=== PATIENT | female | born 1955 | race Hispanic/Latino ===

== ENCOUNTER 2016-05-02 05:55 | Inpatient (IN) | payer BC, OTHER ==
[2016-04-26 15:04] LABS: Eosinophils % (Auto) 1.7 % (0.0-4.3); Hemoglobin 14.5 gm/dl (10.1-14.3); Mean Corpuscular HGB Conc 34 % (30-34); Mean Corpuscular Hemoglobin 31 pg (28-32); Mean Corpuscular Volume 92 fl (79-97); Platelet Count 275 K/mm3 (140-440); Red Blood Count 4.67 M/mm3 (3.65-5.03); Red Cell Distribution Width 13.3 % (13.2-15.2); White Blood Count 7.4 K/mm3 (4.5-11.0)
--- NOTE | 2016-04-26 15:09 | Anesthesia Consultation ---
Anesthesia Consult and Med Hx Date of service: 04/26/16 - Airway Anesthetic Teeth Evaluation: Good ROM Head & Neck: Adequate Mental/Hyoid Distance: Adequate Mallampati Class: Class II Intubation Access Assessment: Probably Good - Pulmonary Exam CTA: Yes - Cardiac Exam Cardiac Exam: RRR - Pre-Operative Health Status ASA Pre-Surgery Classification: ASA3 Proposed Anesthetic Plan: General Nerve Block: Femoral - Pre-Anesthesia Comment Pre-Anesthesia Comments: Pt. is very claustraphobic. Do not put mask on face until asleep. - Pulmonary Hx Smoking: No Hx Sleep Apnea: No (GEOVANI PRE SCREEN HIGH RISK) - Cardiovascular System Hx Hypertension: Yes (NO MEDS / ? DUE TO ANXIETY) - Central Nervous System Hx Seizures: No CVA: No Hx Psychiatric Problems: Yes (anxiety) - Endocrine Hx Renal Disease: No Hx Cirrhosis: No Hx Non-Insulin Dependent Diabetes: No - Hematic Hx Anemia: No - Other Systems Hx Cancer: No Hx Obesity: Yes - Additional Comments Anesthesia Medical History Comments: No problems with previous anesthesias. On around the clock pain meds for knee pain.
[2016-04-26 15:14] LABS: INR 1.03 (0.87-1.13)
[2016-04-26 15:15] LABS: Partial Thromboplastin Time 29.7 Sec. (24.2-36.6)
[2016-04-26 15:23] LABS: Alanine Aminotransferase 25 units/L (7-56); Alkaline Phosphatase 72 units/L (35-129); Anion Gap 18 mmol/L; Blood Urea Nitrogen 12 mg/dL (7-17); Calcium 8.5 mg/dL (8.4-10.2); Carbon Dioxide 24 mmol/L (22-30); Chloride 99.1 mmol/L (98-107); Glucose 83 mg/dL (65-100); Sodium 137 mmol/L (137-145); Total Protein 7.1 g/dL (6.3-8.2)
[2016-04-26 19:51] LABS: Albumin 3.9 g/dL (3.9-5); Albumin/Globulin Ratio 1.2 %
[~2016-05-02 05:55] MED LIST: NACL 0.9% 1000 ML 1,000 ML IV SCH; NEURONTIN PO NR; PEPCID PO NR; VANCOMYCIN/NS 1 GM/250 ML 250 ML IV NR; VERSED IV NR
[2016-05-02] MEDS ORDERED: VERSED IV NR (06:00)
[2016-05-02] MEDS ORDERED: NEURONTIN PO NR (06:00)
[2016-05-02] MEDS ORDERED: PEPCID PO NR (06:00)
[2016-05-02] MEDS ORDERED: NACL BACTERIOSTATIC INFILTRATI ONE (06:35)
[2016-05-02] MEDS ORDERED: DECADRON ONE (06:57)
[2016-05-02] MEDS ORDERED: MARCAINE-EPI 0.5%-1:200,000 INFILTRATI ONE ×2 (06:57→08:27)
[2016-05-02] MEDS ORDERED: MORPHINE ONE (06:58)
[2016-05-02] MEDS ORDERED: XYLOCAINE MPF 2% ONE (07:21)
[2016-05-02] MEDS ORDERED: VERSED ONE (07:21)
[2016-05-02] MEDS ORDERED: DIPRIVAN 10 MG/ML 1,000 MG/100 ML BOTTLE IV ONE (07:25)
--- NOTE | 2016-05-02 08:11 | Admit Criteria Form ---
Admission Criteria Documentation: AMBULATORY SURGERY EXCEPTION CRITERIA Ambulatory Surgery Exception Criteria ( Place 'X' for any and all applicable criteria): Surgery or procedure performed on ambulatory basis may require inpatient stay for[A] ANY ONE of the following(1)(2)(3)(4)(5)(6)(7)(8)(9): [X] I. A preoperative situation, condition, or finding that warrants inpatient stay as indicated by ANY ONE of the following: [] a) Inpatient care needed because of severity of a disease or condition rather than the surgery (eg, severe cardiac or respiratory disease, severe infection) (15) (16 ) (17) (18) [] b) Emergent procedure (eg, angioplasty for acute ischemia)(19) [] c) Complex surgical approach or situation as indicated by ANY ONE of the following(3): [] i) Open approach needed instead of usual endoscopic, transcatheter, or other less invasive procedure [] ii) Difficult approach because of previous operation [] iii) Airway monitoring required after open neck procedures(20)(21) [] iv) Large mass requiring unusually extensive dissection [] v) Additional complicating feature requiring inpatient care (eg, drain management)(22(23): [X] d) Major surgery in a pt with high anesthetic risk as indicated by ANY ONE of the following (2)(3)(5)(7)(8): [X] i) ASA risk class III or higher (severe systemic disease impairing function) [D] [] ii) Advanced age (eg, older than 85 years)(14)(24) [] iii) Symptomatic heart failure(25) [] iv) Symptomatic asthma or COPD(8)(21) [] v) Morbid obesity with hemodynamic or respiratory problems(20)( 21)(26)(27) [] vi) Obstructive sleep apnea(20)(21) [] vii) Former premature infants who are younger than 60 weeks [] viii) High risk for severe postoperative abnormalities (eg, severe postoperative hypocalcemia after parathyroidectomy for severe hyperparathyroidism)(27)( 28) [] ix) Unstable angina(25) [] e) Drug-related risk requiring inpatient stay as indicated by ANY ONE of the following(5)(10)(14)(32)(33) [] i) Procedure requires discontinuing drugs or other therapy (eg , antiarrhythmic medication, antiseizure medication), which necessitates inpatient observation or treatment.(18)(31) [] ii) Major surgery and high risk drug use as indicated by ANY ONE of the following: [] 1) Active abuse of cocaine or similar drug [] 2) Monoamine oxidase inhibitor use [] 3) Other drug identified as posing risk [] f) Inadequate outpatient care situation as indicated by ANY ONE of the following(5)(10)(14)(32)(33) [] i) Patient lives remote from medical facility and procedure has urgent complication potential, and temporary nearby residence cannot be arranged [] ii) Patient will have postprocedure incapacitation and inadequate assistance at home, or alternative level of care cannot be arranged. [] iii) Patient will have long general anesthesia or procedure side effect resolution time, and competent person to stay with patient on first postoperative night at home or alternative level of care cannot be arranged. []iv) Other inadequate outpatient situation that cannot be handled by other means [] II. A perioperative event, condition, or finding that warrants inpatient stay as indicated by ANY ONE of the following (1)(2)(3): [] a) Inadequate physiologic recovery: cardiovascular, respiratory, or hemodynamic status not normal or near preoperative baseline(18) [] b) Hemodynamic instability [] c) Patient not alert with near normal or baseline mental status [] d) Temperature not normal or as expected and not appropriate for outpatient treatment of condition [] e) Ambulatory or appropriate activity level status not yet achieved post procedure [E](34)(35)(36) [] f) Operative site not appropriate (eg, unexpected or excessive drainage or bleeding) [] g) Postoperative effects not resolved or adequately managed (eg, significant pain or vomiting not appropriate for outpatient or next level of care)(10)(12) [] h) Complicating features requiring inpatient care as indicated by ANY ONE of the following(37): [] i) Severe complications of procedure (eg, bowel injury, airway compromise, vascular injury,severe hemorrhage) [] ii) Extensive (eg, dissection far beyond usual scope of procedure ) or prolonged (eg, 120 minutes beyond usual) surgery needed requiring inpatient postoperative care [] iii) Conversion to an open or complex procedure that requires inpatient care (eg, open vs laparoscopic cholecystectomy, abdominal vs vaginal hysterectomy)(38) [] iv) Comorbid condition or test result identified during or post procedure that requires inpatient care (7) [] v) Malignant hyperthermia(30) [] vi) Other complicating feature requiring inpatient care(22)(23) Inpatient stay may be needed until ALL of the following are present (1)(2)(3)(4) (5)(6)(10)(14)(33)(40): []a) Physiologic recovery: cardiovascular, respiratory, and hemodynamic status normal or near preoperative baseline []b) Hemodynamic stability []c) Patient alert, with near normal or baseline mental status []d) Temperature appropriate: patient afebrile or temperature appropriate for outpt treatment of condition []e) Activity level appropriate: ambulatory or appropriate activity level post procedure []f) Operative site appropriate as indicated by ALL of the following: []i) Site dry or with expected drainage []ii) Any blood noted is as expected for procedure. []g) Postoperative effects resolved or managed as indicated by ALL of the following: []i) Pain management appropriate for outpatient (or next level of) care(10) []ii) Minimal nausea and vomiting: if present, successfully treated with oral medication(12) []iii) Headache, dizziness, or drowsiness (if present) are mild. []h) Voiding status acceptable as indicated by ANY ONE of the following: []i) Voiding spontaneously []ii) No voiding but instructions given for follow-up in 6 to 8 hours []iii) Urinary catheter in place, and instructions given for follow-up []i) Complicating features requiring inpatient care manageable at a lower level of care(37) []j) Comorbid conditions manageable at a lower level of care(37) The original [employer] content created by [employer] has been revised. The portions of the content which have been revised are identified through the use of italic text or in bold, and [employer] [facility] [employer] has neither reviewed nor approved the modified material. All other unmodified content is copyright [employer]. Please see references footnoted in the original [employer] edition 2016 Admission Criteria Met: Yes
[2016-05-02] MEDS ORDERED: NEOSPORIN GU IR ONE (08:24)
[2016-05-02] MEDS ORDERED: DEPO-MEDROL INTRA-ARTI ONE (08:25)
[2016-05-02] MEDS ORDERED: MORPHINE IM ONE (08:25)
[2016-05-02] MEDS ORDERED: TORADOL IV ONE (08:26)
[2016-05-02] MEDS ORDERED: NACL 0.9% IR ONE ×3 (08:27→08:30)
[2016-05-02] MEDS ORDERED: TRANEXAMIC ACID IV ONE (08:28)
[2016-05-02] MEDS ORDERED: MARCAINE 0.5% INFILTRATI ONE (09:07)
[2016-05-02] MEDS ORDERED: NACL 0.9% 100 ML ONE (09:15)
[2016-05-02] MEDS ORDERED: NEO SYNEPHRINE ONE (09:15)
[2016-05-02] MEDS ORDERED: AMBIEN PO PRN (09:36)
[2016-05-02] MEDS ORDERED: MORPHINE IV PRN ×2 (09:36)
[2016-05-02] MEDS ORDERED: ZOFRAN IV PRN (09:36)
[2016-05-02] MEDS ORDERED: TYLENOL PO PRN (09:36)
[2016-05-02] MEDS ORDERED: ePHEDrine SULFATE ONE (09:36)
[2016-05-02] MEDS ORDERED: PHENERGAN PR PRN (09:36)
[2016-05-02] MEDS ORDERED: DULCOLAX PR PRN (09:36)
[2016-05-02] MEDS ORDERED: TORADOL IV PRN (09:36)
[2016-05-02] MEDS ORDERED: MILK OF MAGNESIA PO PRN (09:36)
[2016-05-02] MEDS ORDERED: NARCAN 0.4 MG/1 ML IV PRN (09:36)
[2016-05-02] MEDS ORDERED: SODIUM CHLORIDE FLUSH SYRINGE 10 ML IV PRN (09:36)
--- NOTE | 2016-05-02 09:44 | Procedure Note ---
Date of procedure: 05/02/16 Pre-op diagnosis: fail4d right knee replacement Post-op diagnosis: same Procedure: redo TKR Anesthesia: regional Surgeon: PEGGY FRYE [employer] Supervisor: NIMCO SAMANIEGO Estimated blood loss: minimal Pathology: none Specimen disposition: discarded Disposition: floor
[2016-05-02] MEDS ORDERED: NACL ONE (13:00)
--- NOTE | 2016-05-02 15:21 | Anesthesia Day of Surgery ---
Anesthesia Day of Surgery - Day of Surgery Patient Examined: Yes Patient H&P Reviewed: Yes Patient is NPO: Yes
[2016-05-02] MEDS: D5NS 1,000 ML IV SCH (20:15)
[2016-05-03] MEDS: BENADRYL IV PRN ×3 (03:53→21:19)
[2016-05-03] MEDS: D5NS 1,000 ML IV SCH ×2 (04:19→14:50)
--- NOTE | 2016-05-03 08:47 | Consultation ---
History of Present Illness - Reason for Consult Consult date: 05/03/16 Medical management Requesting physician: PEGGY FRYE - History of Present Illness S/p Rt TKA revision surgery.Doing well Past History Past Medical History: arthritis Past Surgical History: total knee replacement Social history: lives with family Family history: no significant family history Medications and Allergies Allergies Allergy/AdvReac Type Severity Reaction Status Date / Time oxycodone AdvReac Dizziness Verified 08/16/15 13:39 Home Medications Medication Instructions Recorded Confirmed Last Taken Type HYDROcodone/APAP 5-325 [[place] 1 tab PO PRN PRN 08/16/15 05/02/16 05/02/16 04:30 History 5-325 mg TAB] Multivit-Min/Iron/Folic/Lutein 1 tab PO DAILY 08/16/15 04/20/16 05/01/16 History [Centrum Silver Women Tablet] Cyclobenzaprine [Flexeril 10 MG 10 mg PO PRN PRN 04/20/16 04/20/16 05/01/16 History TAB] Naproxen Sodium [Aleve TAB] 2 tab PO Q8H PRN 04/20/16 04/20/16 05/01/16 History Active Meds: Active Medications Acetaminophen (Tylenol) 650 mg PO Q4H PRN PRN Reason: Pain MILD(1-3)/Fever >100.5/ADAME Acetaminophen/Hydrocodone Bitart ([place] 5/325) 1 each PO Q6H PRN PRN Reason: Pain, Moderate (4-6) Bisacodyl (Dulcolax) 10 mg OH QDAY PRN PRN Reason: Constip unreliev by MOM/or NPO Cyclobenzaprine HCl (Flexeril) 10 mg PO BID PRN PRN Reason: Spasms Diphenhydramine HCl (Benadryl) 25 mg IV Q6H PRN PRN Reason: Itching Last Admin: 05/03/16 03:53 Dose: 25 mg Sodium Chloride (Nacl 0.9% 1000 Ml) 1,000 mls @ 100 mls/hr IV DIRECT LARRY Last Admin: 05/02/16 06:50 Dose: 100 mls/hr Dextrose/Sodium Chloride (D5ns) 1,000 mls @ 100 mls/hr IV DIRECT LARRY Last Admin: 05/03/16 04:19 Dose: 100 mls/hr Ketorolac Tromethamine (Toradol) 30 mg IV Q6H PRN PRN Reason: Pain, Moderate (4-6) Stop: 05/07/16 09:35 Magnesium Hydroxide (Milk Of Magnesia) 30 ml PO Q4H PRN PRN Reason: Constipation Morphine Sulfate (Morphine) 2 mg IV Q4H PRN PRN Reason: Pain, Moderate (4-6) Morphine Sulfate (Morphine) 4 mg IV Q4H PRN PRN Reason: Pain , Severe (7-10) Naloxone HCl (Narcan 0.4 Mg/1 Ml) 0.1 mg IV Q2MIN PRN PRN Reason: Res Rate </= 8 or 02 SAT < 92% Ondansetron HCl (Zofran) 4 mg IV Q8H PRN PRN Reason: Nausea And Vomiting Promethazine HCl (Phenergan) 25 mg [place] Q6H PRN PRN Reason: Nausea And Vomiting Sodium Chloride (Sodium Chloride Flush Syringe 10 Ml) 10 ml IV PRN PRN PRN Reason: LINE FLUSH Zolpidem Tartrate (Ambien) 5 mg PO QHS PRN PRN Reason: Sleep Review of Systems All systems: negative Exam - Constitutional Vitals: Temp Pulse Resp BP Pulse Ox 98.4 F 104 H 20 111/72 94 05/03/16 06:03 05/03/16 06:03 05/03/16 06:03 05/03/16 06:03 05/03/16 06:03 General appearance: Present: no acute distress, well-nourished - EENT Eyes: Present: PERRL ENT: hearing intact, clear oral mucosa - Neck Neck: Present: supple, normal ROM - Respiratory Respiratory effort: normal Respiratory: bilateral: CTA - Cardiovascular Heart Sounds: Present: S1 & S2. Absent: rub, click - Extremities Extremities: pulses symmetrical, No edema Peripheral Pulses: within normal limits - Abdominal General gastrointestinal: Present: soft, non-tender, non-distended, normal bowel sounds Female genitourinary: Present: normal - Integumentary Integumentary: Present: clear, warm, dry - Musculoskeletal Musculoskeletal: gait normal, strength equal bilaterally - Psychiatric Psychiatric: appropriate mood/affect, intact judgment & insight - Neurologic Neurologic: CNII-XII intact, moves all extremities Results - Labs CBC & Chem 7: 04/26/16 14:20 04/26/16 14:20 Assessment and Plan - Patient Problems (1) History of total knee arthroplasty Current Visit: Yes Status: Acute Qualifiers: Laterality: L (2) Osteoarthritis Current Visit: Yes Status: Chronic Qualifiers: Osteoarthritis location: O Osteoarthritis type: O Spinal region: lumbosacral Spinal osteoarthritis complication: S Laterality: L Plan to address problem: NSAIDs on hold b/c of TKA (3) Pain management Current Visit: Yes Status: Acute Plan to address problem: Adequate (4) DVT prophylaxis Current Visit: Yes Status: Acute Plan to address problem: on SCD's
[2016-05-03] MEDS: NORCO 5/325 PO PRN ×3 (08:56→21:20)
[2016-05-03] MEDS ORDERED: FLEXERIL PO PRN (10:00)
--- NOTE | 2016-05-03 15:18 | Progress Note ---
Assessment and Plan - Patient Problems (1) History of total knee arthroplasty Current Visit: Yes Status: Acute Qualifiers: Laterality: L Plan to address problem: Continue with rehabilitation program, progressive ambulation, plan discharge to home in the next few days. Subjective Date of service: 05/03/16 Interval history: Status post revision total knee arthroplasty, doing well, no complaints except for itching, treated with Benadryl. Objective Vital signs: Vital Signs - 12hr 05/03/16 05/03/16 05/03/16 06:03 08:00 08:56 Temperature 98.4 F 97.5 F L Pulse Rate [ 104 H 110 H From Monitor] Respiratory 20 18 20 Rate Blood Pressure 111/72 125/86 [Left Arm] O2 Sat by Pulse 94 Oximetry 05/03/16 05/03/16 05/03/16 09:56 12:00 14:52 Temperature 97.8 F Pulse Rate [ 105 H From Monitor] Respiratory 20 18 20 Rate Blood Pressure 124/72 [Left Arm] O2 Sat by Pulse Oximetry - Labs CBC & BMP: 04/26/16 14:20 04/26/16 14:20
--- NOTE | 2016-05-03 19:50 | Operative Report ---
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 PROCEDURE: Exploration of right knee, removal of partial knee joint components, redo complete total knee arthroplasty, synovectomy. SURGEON: Mekhi Iglesias MD CHOP SAW OPERATOR: Ronda Amaya RN ANESTHESIA: General. COMPLICATIONS: None. FINDINGS: The patient was found to have severe synovitis in the knee joint, a failed partial knee replacement arthroplasty with severe arthritis on the lateral compartment of the knee joint. PROCEDURE IN DETAIL: Once the patient was in the surgical room, a time-out was carried out to identify the patient and procedure. Once this was done, the procedure was carried out by making an incision that was carried out along the previous incision on the knee and extended this incision distally and proximally for a distance of 5-6 cm. Once this was carried out, the dissection was carried out to subcutaneous tissues without problems or complications and a long medial parapatellar incision was carried out to enter the joint. At this point, releases of the knee were carried out, separate releasing ____ scar tissue within the joint. Once this was carried out, a full synovectomy of the knee was carried out. The synovectomy of the knee was done by releasing the capsule from the synovium. This dissection was carried out sharply and bluntly all the way down to the superior aspect in the medial and lateral gutters. Releases were carried out, also to allow for exposure of the knee, flexion of the knee, and eversion of the patella. Once the synovectomy in this area was done, the synovectomy was to be finished once the knee was cut. The procedure was then continued by using a mallet and a chisel, first rotation and markers of the knee were carried out, epicondylar line was measured, also the vertical line to be able to determine the rotational position of the femur. Once it was marked, the procedure was continued by removal of the partial knee replacement. This was carried out without any problems. Removing the components were carried out with a mallet and a chisel, very little bone was lost at the end of the procedure. Once this was done, the procedure was continued at this point by doing a standard total knee replacement. The medullary canal of the femur was then drilled with a drill, following this by using the intramedullary guide to cut the femur. The tibia was cut using the extramedullary guide. Once the bone was removed, a lamina director of digital technology was placed in the center of the knee joint, debridement of this compartment was carried out with 2 compression of the synovectomy. Trial components were inserted. After trialing of the components, a decision was carried out in regard to which component to use. Once this was done, the procedure was continued by fixation of the components. This was carried out by the insertion of the components with acrylic cement without any problems or complications. Once the components were inserted and were fixed, the knee was found to be stable in flexion and extension. Range of motion was 0-120. The wound was irrigated again. The knee was infiltrated with local anesthetic throughout the joint. Following this, by the insertion of tranexamic acid, the knee capsule was closed with #1 Vicryl suture and multiple interrupted sutures, the subcutaneous tissue with 2-0 Vicryl, the skin with skin clips. The knee had range of motion 0-120 at the end of the case. The knee was stable. JOB# [id number] JAMES/BLADIMIR
[2016-05-04] MEDS: NORCO 5/325 PO PRN ×2 (03:14→10:07)
--- NOTE | 2016-05-04 08:20 | Progress Note ---
Assessment and Plan alert orientated in mild pain, been OOB without problems, able to hold leg against gravity. Plan DC Subjective Date of service: 05/04/16 Objective Vital signs: Vital Signs - 12hr 05/04/16 05:16 Temperature 98.6 F Pulse Rate [ 104 H From Monitor] Respiratory 20 Rate Blood Pressure 142/86 [Left Arm] O2 Sat by Pulse 97 Oximetry - Labs CBC & BMP: 04/26/16 14:20 04/26/16 14:20
--- NOTE | 2016-05-04 08:23 | Discharge Summary ---
Providers - Providers Date of Admission: 05/02/16 05:55 Attending physician: BAILEY ANGEL 05/02/16 00:01 Consult to Case Management [CONS] Routine Services Needed at Discharge: Home Health Services Physical Therapy Notified:: cm notified Consult to Physician [CONS] Routine Consulting Provider: GIOVANNI TREVINO Reason For Exam: for post op medical management Place consult to:: cell phone Notified:: yes Phone number called:: [phone] Was contact made?: Yes If yes, spoke with:: Time called:: 11:55 Physical Therapy Evaluation and Treat [CONS] Routine Comment: Reason For Exam: s/p Right total knee revision Mode of Transport?: Wheelchair Weight bearing status?: Partial wt bearing Assistive devices?: Yes If so list: Walker Primary care physician: CONDENSER CLEANER Hospitalization Disposition: STILL A PATIENT Exam - Constitutional Vitals: Temp Pulse Resp BP Pulse Ox 98.6 F 104 H 20 142/86 97 05/04/16 05:16 05/04/16 05:16 05/04/16 05:16 05/04/16 05:16 05/04/16 05:16 Plan Activity: advance as tolerated Weight Bearing Status: Weight Bear as Tolerated Diet: regular Wound: keep clean and dry Durable Medical Equipment Needed Upon Discharge: [facility] (discharge with home PT) Follow up with: PRIMARY CARE, [Primary Care Provider] - 7 Days
--- NOTE | 2016-05-04 10:51 | Progress Note ---
Assessment and Plan Assessment and plan: 1. Urinary frequency. Rule out UTI. Check urinalysis. 2. Status post TKR. Patient for discharge today. History Interval history: Pt. is s/p Rt TKA revision surgery. Pt. is Doing well except complaining of urinary frequency. She denies suprapubic tenderness. Hospitalist Physical - Constitutional Vitals: Temp Pulse Resp BP Pulse Ox 98.2 F 102 H 16 162/100 97 05/04/16 08:00 05/04/16 08:00 05/04/16 10:07 05/04/16 08:00 05/04/16 10:00 General appearance: Present: no acute distress, well-nourished - EENT Eyes: Present: PERRL, EOM intact ENT: hearing intact, clear oral mucosa, dentition normal - Neck Neck: Present: supple, normal ROM - Respiratory Respiratory effort: normal Respiratory: bilateral: CTA - Cardiovascular Rhythm: regular Heart Sounds: Present: S1 & S2. Absent: gallop, rub - Extremities Extremities: no ischemia, No edema, Full ROM - Abdominal General gastrointestinal: soft, non-tender, non-distended, normal bowel sounds - Integumentary Integumentary: Present: clear, warm, dry - Neurologic Neurologic: CNII-XII intact, moves all extremities Results - Labs CBC & Chem 7: 04/26/16 14:20 04/26/16 14:20 Labs: Laboratory Last Values WBC 7.4 K/mm3 (4.5-11.0) 04/26/16 14:20 RBC 4.67 M/mm3 (3.65-5.03) 04/26/16 14:20 Hgb 14.5 gm/dl (10.1-14.3) H 04/26/16 14:20 Hct 43.0 % (30.3-42.9) H 04/26/16 14:20 MCV 92 fl (79-97) 04/26/16 14:20 MCH 31 pg (28-32) 04/26/16 14:20 MCHC 34 % (30-34) 04/26/16 14:20 RDW 13.3 % (13.2-15.2) 04/26/16 14:20 Plt Count 275 K/mm3 (140-440) 04/26/16 14:20 Lymph % (Auto) 35.2 % (13.4-35.0) H 04/26/16 14:20 Beadle % (Auto) 7.4 % (0.0-7.3) H 04/26/16 14:20 Eos % (Auto) 1.7 % (0.0-4.3) 04/26/16 14:20 Baso % (Auto) 1.0 % (0.0-1.8) 04/26/16 14:20 Lymph # 2.6 K/mm3 (1.2-5.4) 04/26/16 14:20 Beadle # 0.5 K/mm3 (0.0-0.8) 04/26/16 14:20 Eos # 0.1 K/mm3 (0.0-0.4) 04/26/16 14:20 Baso # 0.1 K/mm3 (0.0-0.1) 04/26/16 14:20 Seg Neutrophils % 54.7 % (40.0-70.0) 04/26/16 14:20 Seg Neutrophils # 4.0 K/mm3 (1.8-7.7) 04/26/16 14:20 PT 13.4 Sec. (12.2-14.9) 04/26/16 14:20 INR 1.03 (0.87-1.13) 04/26/16 14:20 APTT 29.7 Sec. (24.2-36.6) 04/26/16 14:20 Sodium 137 mmol/L (137-145) 04/26/16 14:20 Potassium 4.0 mmol/L (3.6-5.0) 04/26/16 14:20 Chloride 99.1 mmol/L (98-107) 04/26/16 14:20 Carbon Dioxide 24 mmol/L (22-30) 04/26/16 14:20 Anion Gap 18 mmol/L 04/26/16 14:20 BUN 12 mg/dL (7-17) 04/26/16 14:20 Creatinine 0.4 mg/dL (0.7-1.2) L 04/26/16 14:20 Estimated GFR > 60 ml/min 04/26/16 14:20 BUN/Creatinine Ratio 30.00 % 04/26/16 14:20 Glucose 83 mg/dL (65-100) 04/26/16 14:20 Calcium 8.5 mg/dL (8.4-10.2) 04/26/16 14:20 Total Bilirubin 1.0 mg/dL (0.1-1.2) 04/26/16 14:20 AST 27 units/L (5-40) 04/26/16 14:20 ALT 25 units/L (7-56) 04/26/16 14:20 Alkaline Phosphatase 72 units/L (35-129) 04/26/16 14:20 Total Protein 7.1 g/dL (6.3-8.2) 04/26/16 14:20 Albumin 3.9 g/dL (3.9-5) 04/26/16 14:20 Albumin/Globulin Ratio 1.2 % 04/26/16 14:20
[2016-05-04 11:48] LABS: Bilirubin,Urine NEG (Negative); Blood,Urine NEG (Negative); Ketones,Urine NEG (Negative); Leukocyte Esterase,Urine NEG (Negative); Nitrite,Urine NEG (Negative); Protein,Urine <15 mg/dL mg/dL (Negative); RBC,Urine < 1.0 /HPF (0.0-6.0); Urobilinogen,Urine < 2.0 mg/dL (<2.0); WBC,Urine < 1.0 /HPF (0.0-6.0)
[2016-05-04 16:17] VITALS: BP 132/61
== END 2016-05-04 15:30 | disposition home health service (06) | DRG 470 ==
LOC: 3A 05:55 → 2B-SURG 09:55
PROVIDERS: ATTEND Hospitalist
PROC: 0SRC0J9 Replacement of Right Knee Joint with Synthetic Substitute, Cemented, Open Approach (ICD-10-PCS; principal; 2016-05-03)
PROC: 0SBD0ZZ Excision of Left Knee Joint, Open Approach (ICD-10-PCS; 2016-05-03)
DX: T84.092A Other mechanical complication of internal right knee prosthesis, initial encounter (principal); I10 Essential (primary) hypertension; F41.9 Anxiety disorder, unspecified; E66.9 Obesity, unspecified; M47.897 Other spondylosis, lumbosacral region; R35.0 Frequency of micturition; M17.11 Unilateral primary osteoarthritis, right knee; Z88.8 Allergy status to other drugs, medicaments and biological substances; Z68.37 Body mass index [BMI] 37.0-37.9, adult; Z88.6 Allergy status to analgesic agent; M65.861 Other synovitis and tenosynovitis, right lower leg
CPT/HCPCS: 36415; 62324; 64450; 80053; 81001; 85025; 85610; 85730; 88300; 88302; 88304; 88305; A4217; C1776; J1030; J1100; J1200; J1885; J2250; J2270; J2370; J2704; J3370; J7030; J7042